=== PATIENT | male | born 1960 | race Caucasian/White ===

== ENCOUNTER → 2024-07-12 15:24 | Outpatient (REF) | payer OTHER, SELFPAY | LOC: HWRAD 15:24 | PROVIDERS: ATTENDING PHYSICIAN Family Medicine | DX: M25.511 Pain in right shoulder (principal) | CPT/HCPCS: 73030 ==

== ENCOUNTER → 2024-08-18 15:40 | Outpatient (REF) | payer OTHER, SELFPAY | LOC: HWRAD 15:40 | PROVIDERS: ATTENDING PHYSICIAN Internal Medicine; FAMILY PHYSICIAN Family Medicine | DX: R09.1 Pleurisy (principal) | CPT/HCPCS: 71046 ==

== ENCOUNTER → 2024-09-08 14:25 | Outpatient (REF) | payer OTHER, SELFPAY | LOC: HWRAD 14:25 | PROVIDERS: ATTENDING PHYSICIAN Internal Medicine; FAMILY PHYSICIAN Family Medicine | DX: M81.0 Age-related osteoporosis without current pathological fracture (principal) | CPT/HCPCS: 77080 ==

== ENCOUNTER 2024-10-25 10:09 | Day surgery (SDC) | payer OTHER, SELFPAY ==
--- NOTE | 2024-10-25 10:50 | ITS.CL.CARDI ---
Therapy Aide - Cardioversion
Cardioversion
Procedure Report:
Date of Procedure: 10/25/24
Procedure: Cardioversion
Indication: Symptomatic atrial fibrillation
Performing Physician: Neo Elizabeth MD
Technique: The patient was brought to the holding area. Signed informed consent was obtained. A time out was called and performed. The patient was anesthetized by the anesthesia service. Anticoagulation status was reviewed and appropriate. R2 pads
were placed anteriorly and posteriorly. A 200 J synchronized biphasic shock restored normal sinus rhythm/sinus bradycardia. There were no complications.
Conclusion: Uncomplicated cardioversion from atrial fibrillation to sinus rhythm.
Recommendation: Routine post cardioversion care. Continue alf anticoagulation.
== END 2024-10-25 11:25 | disposition home or self-care (01) ==
LOC: CATH 10:09
PROVIDERS: ATTENDING PHYSICIAN Nuclear Medicine Nuclear Cardiology; FAMILY PHYSICIAN Family Medicine; OTHER PHYSICIAN Internal Medicine Cardiovascular Disease
DX: I48.19 Other persistent atrial fibrillation (principal); Z79.01 Long term (current) use of anticoagulants; I48.4 Atypical atrial flutter; E78.00 Pure hypercholesterolemia, unspecified; Z79.899 Other long term (current) drug therapy
CPT/HCPCS: 92960; 93005

== ENCOUNTER 2025-01-30 08:29 | Day surgery (SDC) | payer OTHER, SELFPAY ==
[2025-01-05 09:43] VITALS: BMI 25.6
[2025-01-05 10:03] LABS: Hematocrit 43.4 % (39.0-52.0); Hemoglobin 14.7 g/dL (13.0-18.0); Mean Corp Hgb Conc. 33.9 g/dL (33.0-37.0); Mean Corpuscular Volume 85.6 fL (80.0-94.0); Nucleated Red Blood Cells % 0 % (-); Platelet Count 280 10^3/uL (130-400); Red Cell Dist. Width 12.6 % (11.5-14.5)
[2025-01-05 10:15] LABS: INR 1.27; PT 16.4 Sec (11.4-14.6)
[2025-01-05 10:16] LABS: ALT (SGPT) 26 U/L (0-50); AST (SGOT) 26 U/L (17-59); Albumin 4.3 g/dl (3.5-5.0); Alkaline Phosphatase 52 U/L (38-126); Blood Urea Nitrogen 19 mg/dl (9-20); Calcium 9.8 mg/dl (8.4-10.2); Carbon Dioxide 32 mmol/L (22-30); Chloride 104 mmol/L (98-107); Estimated Creatinine Clearance 70 ml/min; Glucose 99 mg/dl (70-99); Magnesium 2.1 mg/dl (1.6-2.3); Potassium 4.4 mmol/L (3.5-5.1); Sodium 138 mmol/L (135-145); Total Protein 6.6 g/dl (6.3-8.2); eGFR > 60.00
--- NOTE | 2025-01-05 11:22 | HPS.HSE ---
Family Physician
-
Family Physician: Renzo Booker,
Chief Complaint
-
Persistent atrial fibrillation.
History of Present Illness
The patient is a 64 year old male presenting today for persistent atrial fibrillation. The patient was previously diagnosed with typical atrial flutter and underwent 2 cardioversions and an atrial flutter ablation with Dr. Ferro
Grant in April 2022. He reports that his symptoms associated with his atrial arrhythmia had resolved soon after his ablation. Unfortunately, in July of this year, he began experiencing palpitations. He noticed these palpitations primarily
at night. An outpatient extended wear foreman/pile driving and erection demonstrated the presence of atrial fibrillation. A cardioversion was preformed in October 2024; however, his arrhythmia was noted to return in early November 2024. He is on pharmacological therapy with
Metoprolol Succinate. He reports that he has been compliant with Xarelto for oral anticoagulation. He is interested in pursuing pulmonary vein isolation for further arrhythmia management at this time. He denies any complaints today such as chest
pain, shortness of breath, nausea, vomiting, diarrhea, lightheadedness, dizziness, cough, sore throat, or fever.
Medical History
Past Medical History
Past Medical History: Reports Other
Additional Past Medical History:
1. Persistent atrial fibrillation, status post cardioversion 10/2024; pharmacological therapy with Metoprolol Succinate and oral anticoagulation with Xarelto.
2. Typical atrial flutter, status post cardioversion x2 and atrial flutter ablation 04/2022.
3. Hypertension.
4. Hypercholesterolemia, diet-controlled.
5. Coronary artery disease, non-obstructive on cath.
6. Mild fusiform aneurysmal dilatation of the ascending thoracic aorta, 4.1 cm; likely stable.
7. Sinus bradycardia.
8. Nonsustained ventricular tachycardia due to dehydration 2016.
9. PVCs and PACs.
10. GERD.
11. Colon polyps.
12. Lipoma of sigmoid colon.
13. Osteoarthritis, status post right total knee arthroplasty, 12/2021, and manipulation under anesthesia of right total knee 02/2022.
14. Lumbar stenosis.
15. Sciatica.
16. Polymyalgia rheumatica, on Prednisone.
17. Right thigh keloid secondary to remote excision of upper thigh hemangioma.
18. History of remote tobacco abuse.
Past Surgical History: Reports Other
Additional Past Surgical History:
1. Atrial flutter ablation.
2. Cardioversion x3.
3. Cardiac catheterization.
4. Right total knee arthroplasty.
5. Manipulation under anesthesia of right knee.
6. Right knee meniscectomy.
7. Right upper thigh hemangioma excision.
8. Multiple epidural steroid injections.
9. Colonoscopy x4.
Social History
Tobacco: Former Smoker (He is a former one pack per day cigarette smoker who quit smoking altogether at 17 years of age.)
Alcohol: None
Personal:
Living: Other (The patient lives in a 3-story home with his .)
Family History
Family History: Not pertinent
Allergies / Home Medications
Allergy/Medication List:
HOME MEDICATIONS:
1. Acetaminophen 500 mg p.o. daily as needed.
2. Amlodipine 5 mg p.o. daily.
3. Xarelto 20 mg p.o. every evening.
4. Vitamin B complex 1 tablet p.o. daily.
5. Cholecalciferol 25 mcg p.o. daily.
6. Famotidine 20 mg p.o. at bedtime.
7. Biotrue 1 drop ophthalmic daily.
8. Metoprolol Succinate 25 mg p.o. at bedtime.
9. Prednisone 15 mg p.o. daily.
ALLERGIES: Bees. Versed.
Review of Systems
-
A 12 point ROS was completed and negative except as noted: Yes
Physical Exam
Vital Signs
Blood pressure 147/79. Heart rate 73. Respirations 18. Pulse ox 99% on room air.
Height 5 feet, 5 inches. Weight 69.7 kg. BMI 25.6.
Physical Exam
General: Well Developed, Well Nourished and No Apparent Distress
HEENT: NormoCephalic, Moist mucous membranes, Atraumatic and PERRLA
Respiratory: Clear
Cardiac: Regular Rhythm (with occasional ectopy. )
GI: Soft, Non Tender and Non Distended
Musculoskeletal: No Edema and Normal Gait & Station
Skin: Warm and Dry
Neuro: AO x 3 and Nonfocal/grossly intact
Laboratory Results
-
01/05/25 09:50
01/05/25 09:50
Laboratory Results
PT 16.4 Sec (11.4-14.6) H 01/05/25 09:49
INR 1.27 01/05/25 09:49
Total Bilirubin 1.3 mg/dl (0.2-1.3) 01/05/25 09:50
AST 26 U/L (17-59) 01/05/25 09:50
ALT 26 U/L (0-50) 01/05/25 09:50
Alkaline Phosphatase 52 U/L (38-126) 01/05/25 09:50
Magnesium 2.1.
Type and screen A negative.
EKG 01/05/2025: Sinus rhythm with PACs. Left axis deviation.
Chest CT 01/05/2025: Separate drainage ostium for the right middle lobe pulmonary vein. Short segment common vestibule for the left superior and inferior pulmonary veins, fairly commonly seen and considered normal variant. No evidence for left
atrial thrombus. Mild fusiform aneurysmal dilatation of the ascending thoracic aorta measuring up to 4.1 cm, likely stable.
Transesophageal echocardiogram 03/26/2022: Ejection fraction is 55-60%. No left atrial thrombus. No significant valve abnormalities.
Impression/Plan
-
IMPRESSION/PLAN:
1. Persistent atrial fibrillation: The patient is in need of a pulmonary vein isolation with Dr. Pillo Burns on 01/25/2025. The benefits and risks of the procedure have been explained to the patient. The patient understands these risks and
wishes to proceed. He will not be required to undergo a pre-procedural transesophageal echocardiogram as he has been compliant with his home oral anticoagulation. He is aware to continue Xarelto uninterrupted prior to his ablation. He will take no
medications the morning of his procedure.
[2025-01-30] VITALS (13 sets, daily range): BP systolic 95–138; BP diastolic 66–104
--- NOTE | 2025-01-30 07:54 | ITS.CL.ABL ---
[employer] Technician - Ablation
Ablation
Procedure Report:
ELECTROPHYSIOLOGIC STUDY AND POSSIBLE ABLATION
DATE: January 30, 2025
Primary Care Provider: Dr. Renzo Booker
Primary Bench Machine Operator: Dr. Brii Pillai.
INDICATION:
Symptomatic Atrial Fibrillation.
Persistent
HISTORY: See H and P.
Symptomatic AF, poorly controlled with attempted medical therapy
He has medical history of atrial tachycardia/atrial flutter, PVCs, hypertension and prior tobacco dependence who quit > 10 years ago.�
He underwent atrial flutter ablation 05/22/2022.�
He has been free of symptoms suggestive of atrial tachyarrhythmia until July of this year when he began experiencing palpitations.� There is an outpatient extended wear monitor from September demonstrating persistence of atrial fibrillation
Atrial fibrillation was persistent for approximately 3 months prior to his cardioversion in October 27, 2024.
He noted marked symptom improvement in sinus rhythm.�
HAS-BLED: 1
Age
CHADSVASc: 2
HTN
Age
PRESENTING RHYTHM:SR
HISTORY: See H and P.
Symptomatic AF, poorly controlled with attempted medical therapy.
ANTICOAGULATION: Rivaroxaban 20 mg daily
'TIME-OUT': called and confirmed.
SEDATION/ANESTHESIA: provided via the anesthesia department using general anesthesia.
PROCEDURE:
Ultrasound Guidance with real-time visualization of needle insertion and vessel patency performed by [facility] for femoral venous Vascular Access.
Under real-time US guidance, the needle was advanced with negative pressure into the vein. The needle was seen entering the vessel lumen with a good return of dark red flow, the syringe was removed, non-pulsatile, dark red blood low was noted and
the wire was passed without difficulty, then the needle was removed. US confirmed the wire was in the vein, not going into an artery,
Images were taken and saved for the patient's permanent record. Imaging findings typical femoral venous anatomy. Direct visualization of needle puncture into the femoral vein was observed and recorded.
A decapolar CS catheter was placed within the CS for mapping and pacing.
The intracardiac ultrasound catheter was positioned in the RA for continuous intracardiac ultrasound imaging.
Heparin bolus and infusion to target ACT at 300 -350 seconds was administered. Transseptal puncture was performed. This entailed advancing a sheath with dilator into the superior vena cava and withdrawing both (monitoring intracardiac ultrasound,
fluoroscopy and tip pressure) with the tip oriented toward the atrial septum. The fossa ovalis was engaged (indicated by sudden displacement of the sheath tip as well as tenting of the fossa seen on intracardiac ultrasound).
Left atrial catheter position was confirmed by echocardiographic imaging, pressure monitoring (LA mean pressure 4 mm Hg) and fluoroscopy. The sheath was advanced over the dilator and positioned in the left atrium.
The multipolar mapping catheter was initially positioned through the transseptal sheath for high density mapping.
Geometry and voltage mapping was performed using the [employer] multipolar grid catheter. Ensite-X was utilized for three-dimensional electroanatomical mapping.
Cardioversion resulted in sinus rhythm.
A 3-D map was created using Ensite-X in Voxel mode. A 3-D reconstructed CT image was compared to the 3-D Navex map to assist in anatomic evaluation, mapping and ablation.
The [employer] Pulse Select PFA catheter and system was used for cardiac ablation. Catheter positioning was guided and confirmed using both I.C.E. and fluoroscopy.
High density electroanatomical three-dimensional mapping demonstrated PVs: LSPV, LIPV, RSPV, RIPV(the RIPV has complex early branching).
After accomplishing pulmonary venous isolation, mapping failed to identify additional areas likely to be extra PV contributors to atrial fibrillation.
Post ablation mapping finds entrance and exit block at each of the pulmonary veins (LSPV, LIPV, RSPV, RIPV).
Programmed electrostimulation including burst atrial pacing as well the delivery of decremental extrastimuli down to atrial effective refractory period and no sustained arrhythmias could be induced.
I.C.E. :
Pre-Ablation Post-Ablation
LVEF: 50 % 50 %
WMA: none none
Pericardial effusion: none none
LA Pressure 4 6
COMPLICATIONS:
none
SUMMARY:
- Mapping and ablation to isolate the PVs resulting in electrical isolation of the pulmonary veins
- 3-D Electroanatomical Mapping
- Intracardiac Ultrasound
- Ultrasound guidance for vascular access
Post ablation, I discussed today's findings and results with the patient's , Tawanna.
RECOMMENDATIONS:
- Observe in monitored bed.
- Maintain oral anticoagulation.
- Continue metoprolol succinate 25 mg daily
- Office visit with Dr. Brii Pillai 02/27/25
Copy to:
Primary Care Provider: Dr. Renzo Booker
Primary Bench Machine Operator: Dr. Brii Pillai.
[2025-01-30 10:58] LABS: ACT-LR - POC 276 Seconds (116-155)
[2025-01-30 11:20] LABS: ACT-LR - POC 329 Seconds (116-155)
--- NOTE | 2025-01-30 16:35 | PTCARENOTE ---
Patient bleed when getting up to bathroom. Pressure applied to groin. VSS. Report handoff given to Christal EPSTEIN.
--- NOTE | 2025-01-30 16:57 | W.PN.UPDATE ---
Update Note
Progress Note Update
Pt seen post PFA. Right groin site without ht, non tender. Mild ooze after first getting up but controlled with manual compression, no stable. Post EKG SB 50s, no acute changes. Resume xarelto tonight at usual time. Continue other meds as before.
Follouwp at [facility] as scheduled. Home later today if groin site/tele remain stable.
== END 2025-01-30 17:20 | disposition home or self-care (01) ==
LOC: CATH 08:29
PROVIDERS: ATTENDING PHYSICIAN Internal Medicine Cardiovascular Disease; FAMILY PHYSICIAN Family Medicine; OTHER PHYSICIAN Internal Medicine Cardiovascular Disease
DX: I48.19 Other persistent atrial fibrillation (principal); I10 Essential (primary) hypertension; I25.10 Atherosclerotic heart disease of native coronary artery without angina pectoris; I71.21 Aneurysm of the ascending aorta, without rupture; E78.00 Pure hypercholesterolemia, unspecified; M17.11 Unilateral primary osteoarthritis, right knee; M35.3 Polymyalgia rheumatica; Z87.891 Personal history of nicotine dependence; M54.30 Sciatica, unspecified side; Z86.0100 Personal history of colon polyps, unspecified; K21.9 Gastro-esophageal reflux disease without esophagitis; I47.20 Ventricular tachycardia, unspecified; I49.3 Ventricular premature depolarization; Z79.01 Long term (current) use of anticoagulants; Z79.52 Long term (current) use of systemic steroids; Z79.899 Other long term (current) drug therapy; I48.92 Unspecified atrial flutter; M48.061 Spinal stenosis, lumbar region without neurogenic claudication; Z91.030 Bee allergy status
CPT/HCPCS: C1732; C1894; C1769; C1730; C1892; 75572; 80053; 83735; 85025; 85347; 85610; 86850; 86900; 86901; 93005; 93656; C1766; Q9967

== ENCOUNTER → 2025-03-16 08:51 | Outpatient (REF) | payer OTHER, SELFPAY | LOC: RCS 08:51 | PROVIDERS: ATTENDING PHYSICIAN Internal Medicine Cardiovascular Disease; FAMILY PHYSICIAN Family Medicine | DX: E78.5 Hyperlipidemia, unspecified (principal); I25.10 Atherosclerotic heart disease of native coronary artery without angina pectoris | CPT/HCPCS: 93017; 93350 ==